=== PATIENT | female | born 1965 | race Caucasian/White ===

== ENCOUNTER 2018-06-27 10:41 | Emergency (ER) | payer OTHER ==
[2018-06-27 10:45] VITALS: RESP 18; TEMP 98.3
[2018-06-27] MEDS ORDERED: LIDOCAINE 5% PATCH TOPICAL STA (11:01)
[2018-06-27] MEDS ORDERED: METHOCARBAMOL 500 MG TAB PO STA (11:01)
--- NOTE | 2018-06-27 11:04 | ED ---
General Adult HPI - General Chief complaint: Back Pain/Injury Stated complaint: rt sided back/arm pain Time Seen by Provider: 06/27/18 10:46 Source: patient Mode of arrival: ambulatory Limitations: no limitations - History of Present Illness Initial comments: Patient is a 53-year-old female presenting for back pain. The patient states that it has been constant for the last 3 days and it is located in the right scapula shoulder blade area and she has pain radiating down the arm. She states that her tried massaging it and that improved mildly. She also tried Tylenol and Motrin with only mild relief. She denies any trauma or manipulation. She states that it is not associated with nausea/vomiting/diarrhea, cough, fevers or chills. Initially, she denied chest pain but then clarified and stated that when the symptoms started, it was initially a pain in the middle of her chest. Pt also denies any prolonged periods of immobility, CA, DVT/PE, estrogen use, or recent surgery. - Related Data Previous Rx's Medication Instructions Recorded Lidocaine 5% Patch [Lidoderm] 1 patch TOPICAL DAILY #30 patch 06/27/18 Methocarbamol [Robaxin-750] 750 mg PO TID PRN #21 tablet 06/27/18 Allergies Allergy/AdvReac Type Severity Reaction Status Date / Time Penicillins Allergy Unknown Verified 06/27/18 10:45 Review of Systems ROS Statement: Those systems with pertinent positive or pertinent negative responses have been documented in the HPI. Constitutional: Negative for chills, fatigue and fever. HENT: Negative for congestion. Respiratory: Negative for chest tightness, shortness of breath and wheezing. Negative for cough Cardiovascular: Negative for chest pain and palpitations. Gastrointestinal: Negative for abdominal pain. Negative for abdominal distention, diarrhea, nausea and vomiting. Genitourinary: Negative for dysuria. Musculoskeletal: Positive for back pain, negative for neck pain and neck stiffness. Skin: Negative for color change. Neurological: Negative for dizziness, speech difficulty, weakness and light- headedness. Psychiatric/Behavioral: Negative for agitation and confusion. Negative for anxiety ROS Other: All systems not noted in ROS Statement are negative. Past Medical History Past Medical History: Diabetes Mellitus, Hyperlipidemia, Hypertension History of Any Multi-Drug Resistant Organisms: None Reported Past Surgical History: Appendectomy, Breast Surgery Additional Past Surgical History / Comment(s): lumpectomy Past Psychological History: No Psychological Hx Reported Smoking Status: Current every day smoker Past Alcohol Use History: Occasional Past Drug Use History: None Reported General Exam - General Exam Comments Initial Comments: Constitutional: Pt appears well-developed and well-nourished. No distress. Head: Normocephalic and atraumatic. Eyes: EOM are normal. Neck: Normal range of motion. Neck supple. Cardiovascular: Normal rate, regular rhythm, S1 normal, S2 normal and normal heart sounds. Exam reveals no gallop and no friction rub. No murmur heard. Pulmonary/Chest: Effort normal and breath sounds normal. No tachypnea and no bradypnea. No respiratory distress. No wheezes or rales noted. Abdominal: Soft. Bowel sounds are normal. Pt exhibits no shifting dullness, no distension, no pulsatile liver, no fluid wave, no abdominal bruit and no ascites. There is no rigidity, no rebound, no guarding, no tenderness at McBurney's point and negative Velázquez's sign. There is no tenderness. Musculoskeletal: Normal range of motion. No tenderness to palpation of the C- spine, T-spine, L-spine Neurological: Pt is alert and oriented to person, place, and time. No cranial nerve deficit. Skin: Skin is warm and dry. No rash noted. Pt is not diaphoretic. No erythema. No pallor. Psychiatric: Pt has a normal mood and affect. Pt behavior is normal. Thought content normal. Limitations: no limitations Course Vital Signs 06/27/18 06/27/18 06/27/18 10:42 13:32 15:14 Temperature 98.3 F Pulse Rate 90 70 78 Respiratory 18 18 18 Rate Blood Pressure 158/73 134/79 117/68 O2 Sat by Pulse 99 98 96 Oximetry 06/27/18 16:04 Temperature Pulse Rate 78 Respiratory 18 Rate Blood Pressure 111/71 O2 Sat by Pulse 98 Oximetry EKG Findings - EKG Comments: EKG Findings:: EKG shows normal sinus rhythm with a rate of 77 bpm, MS interval 146, QRS 88, QTC 418. There are no significant ST depressions or elevations. Medical Decision Making - Medical Decision Making Laboratory studies included serial troponins which both were negative and a d- dimer which is as well. Chest x-ray was unremarkable as well. It was explained to patient that symptoms did not necessarily seem to be secondary to ACS and appeared to be muscular skeletal nature but this could not be excluded complete ly and that observation stay was reasonable back for rule out of cardiac etiology. However, patient kindly declined and stated that this is better after NSAIDs and prednisone.Explained all labs and diagnostic test results and that we will discharge the patient home and patient is to follow up with PCP in 1-2 days and return to the ED if symptoms worsen. Pt is agreeable to plan. . - Lab Data Result diagrams: 06/27/18 11:25 06/27/18 11:25 Lab Results 06/27/18 06/27/18 06/27/18 Range/Units 11:25 11:25 11:25 WBC 11.2 H (3.8-10.6) k/uL RBC 4.47 (3.80-5.40) m/uL Hgb 14.4 (11.4-16.0) gm/dL Hct 43.8 (34.0-46.0) % MCV 98.0 (80.0-100.0) fL MCH 32.1 (25.0-35.0) pg MCHC 32.8 (31.0-37.0) g/dL RDW 11.9 (11.5-15.5) % Plt Count 330 (150-450) k/uL Neutrophils % 62 % Lymphocytes % 31 % Monocytes % 4 % Eosinophils % 2 % Basophils % 1 % Neutrophils # 6.9 (1.3-7.7) k/uL Lymphocytes # 3.4 (1.0-4.8) k/uL Monocytes # 0.5 (0-1.0) k/uL Eosinophils # 0.2 (0-0.7) k/uL Basophils # 0.1 (0-0.2) k/uL PT 10.4 (9.0-12.0) sec INR 1.0 (<1.2) APTT 24.7 (22.0-30.0) sec D-Dimer 0.26 (<0.60) mg/L FEU Sodium 139 (137-145) mmol/L Potassium 4.2 (3.5-5.1) mmol/L Chloride 104 (98-107) mmol/L Carbon Dioxide 26 (22-30) mmol/L Anion Gap 9 mmol/L BUN 15 (7-17) mg/dL Creatinine 0.52 (0.52-1.04) mg/dL Est GFR (CKD-EPI)AfAm >90 (>60 ml/min/1.73 sqM) Est GFR (CKD-EPI)NonAf >90 (>60 ml/min/1.73 sqM) Glucose 105 H (74-99) mg/dL Calcium 10.2 (8.4-10.2) mg/dL Magnesium 1.9 (1.6-2.3) mg/dL Total Bilirubin 0.4 (0.2-1.3) mg/dL AST 26 (14-36) U/L ALT 33 (9-52) U/L Alkaline Phosphatase 93 (38-126) U/L Troponin I (0.000-0.034) ng/mL Total Protein 7.0 (6.3-8.2) g/dL Albumin 4.4 (3.5-5.0) g/dL 06/27/18 06/27/18 Range/Units 11:25 14:30 WBC (3.8-10.6) k/uL RBC (3.80-5.40) m/uL Hgb (11.4-16.0) gm/dL Hct (34.0-46.0) % MCV (80.0-100.0) fL MCH (25.0-35.0) pg MCHC (31.0-37.0) g/dL RDW (11.5-15.5) % Plt Count (150-450) k/uL Neutrophils % % Lymphocytes % % Monocytes % % Eosinophils % % Basophils % % Neutrophils # (1.3-7.7) k/uL Lymphocytes # (1.0-4.8) k/uL Monocytes # (0-1.0) k/uL Eosinophils # (0-0.7) k/uL Basophils # (0-0.2) k/uL PT (9.0-12.0) sec INR (<1.2) APTT (22.0-30.0) sec D-Dimer (<0.60) mg/L FEU Sodium (137-145) mmol/L Potassium (3.5-5.1) mmol/L Chloride (98-107) mmol/L Carbon Dioxide (22-30) mmol/L Anion Gap mmol/L BUN (7-17) mg/dL Creatinine (0.52-1.04) mg/dL Est GFR (CKD-EPI)AfAm (>60 ml/min/1.73 sqM) Est GFR (CKD-EPI)NonAf (>60 ml/min/1.73 sqM) Glucose (74-99) mg/dL Calcium (8.4-10.2) mg/dL Magnesium (1.6-2.3) mg/dL Total Bilirubin (0.2-1.3) mg/dL AST (14-36) U/L ALT (9-52) U/L Alkaline Phosphatase (38-126) U/L Troponin I <0.012 <0.012 (0.000-0.034) ng/mL Total Protein (6.3-8.2) g/dL Albumin (3.5-5.0) g/dL Disposition Clinical Impression: Back pain Disposition: HOME SELF-CARE Condition: Good Prescriptions: Lidocaine 5% Patch [Lidoderm] 1 patch TOPICAL DAILY #30 patch Methocarbamol [Robaxin-750] 750 mg PO TID PRN #21 tablet PRN Reason: Pain Is patient prescribed a controlled substance at d/c from ED?: No Referrals: Nonstaff,Physician [Primary Care Provider] - 1-2 days Genie Sifuentes MD [STAFF PHYSICIAN] - 1-2 days Time of Disposition: 15:50
[2018-06-27 11:42] LABS: Basophils # (A) 0.1 k/uL (0-0.2); Basophils % (A) 1 %; Eosinophils # (A) 0.2 k/uL (0-0.7); Eosinophils % (A) 2 %; HCT 43.8 % (34.0-46.0); HGB 14.4 gm/dL (11.4-16.0); Lymphocytes # (A) 3.4 k/uL (1.0-4.8); Lymphocytes % (A) 31 %; MCH 32.1 pg (25.0-35.0); MCHC 32.8 g/dL (31.0-37.0); Mean Platelet Volume 6.4; Monocytes # (A) 0.5 k/uL (0-1.0); Monocytes % (A) 4 %; Neutrophils # (A) 6.9 k/uL (1.3-7.7); Neutrophils % (A) 62 %; Platelet Count 330 k/uL (150-450); RBC 4.47 m/uL (3.80-5.40); RDW 11.9 % (11.5-15.5); WBC 11.2 k/uL (3.8-10.6)
--- NOTE | 2018-06-27 11:47 | XR ---
EXAMINATION TYPE: XR chest 2V DATE OF EXAM: 06/27/2018 COMPARISON: NONE HISTORY: Right-sided chest pain TECHNIQUE: Frontal and lateral views of the chest are obtained. FINDINGS: There is no focal air space opacity, pleural effusion, or pneumothorax seen. The cardiac silhouette size is within normal limits. The osseous structures are intact. IMPRESSION: No acute cardiopulmonary process.
[2018-06-27 11:54] LABS: ALT 33 U/L (9-52); AST 26 U/L (14-36); Albumin 4.4 g/dL (3.5-5.0); Alkaline Phosphatase 93 U/L (38-126); Anion Gap 9 mmol/L; Blood Urea Nitrogen 15 mg/dL (7-17); Calcium 10.2 mg/dL (8.4-10.2); Carbon Dioxide 26 mmol/L (22-30); Chloride 104 mmol/L (98-107); Glucose 105 mg/dL (74-99); Magnesium 1.9 mg/dL (1.6-2.3); Potassium 4.2 mmol/L (3.5-5.1); Sodium 139 mmol/L (137-145); Total Bilirubin 0.4 mg/dL (0.2-1.3)
[2018-06-27 12:00] LABS: D-Dimer 0.26 mg/L FEU (<0.60); Partial Thromboplastin Time 24.7 sec (22.0-30.0); Prothrombin Time 10.4 sec (9.0-12.0)
[2018-06-27] MEDS ORDERED: KETOROLAC 30 MG/ML 1 ML VIAL IVP STA (13:11)
[2018-06-27] MEDS ORDERED: methylPREDNISolone SOD SUCCI 125 MG/2 ML VIAL IV STA (13:11)
[2018-06-27 15:16] VITALS: PULSE 78
[2018-06-27 16:05] VITALS: BP 111/71
== END 2018-06-27 16:05 | disposition home or self-care (01) ==
LOC: EC 10:41
DX: M54.9 Dorsalgia, unspecified (principal); M25.511 Pain in right shoulder; M79.601 Pain in right arm; F17.200 Nicotine dependence, unspecified, uncomplicated; Z88.0 Allergy status to penicillin; Z53.20 Procedure and treatment not carried out because of patient's decision for unspecified reasons; Z86.79 Personal history of other diseases of the circulatory system
CPT/HCPCS: 36415; 93005; 85379; 80053; 83735; 84484; 85025; 85610; 85730; 71046; 99285; 96374; 96375; J2930; J1885

== ENCOUNTER 2022-03-01 07:27 | Observation (INO) | payer OTHER ==
[2022-03-01 07:42] LABS: Glucose,Whole Blood 137 mg/dL (70-110)
[2022-03-01 07:57] LABS: Basophils # (A) 0.1 k/uL (0-0.2); Basophils % (A) 0 %; Eosinophils # (A) 0.2 k/uL (0-0.7); Eosinophils % (A) 1 %; HCT 42.6 % (34.0-46.0); HGB 14.4 gm/dL (11.4-16.0); Lymphocytes # (A) 3.9 k/uL (1.0-4.8); Lymphocytes % (A) 30 %; MCH 32.6 pg (25.0-35.0); MCHC 33.7 g/dL (31.0-37.0); MCV 96.7 fL (80.0-100.0); Mean Platelet Volume 7.9; Monocytes # (A) 0.6 k/uL (0-1.0); Monocytes % (A) 5 %; Neutrophils # (A) 8.2 k/uL (1.3-7.7); Neutrophils % (A) 63 %; Platelet Count 302 k/uL (150-450); RDW 11.1 % (11.5-15.5)
[2022-03-01 08:03] LABS: ALT 22 U/L (4-34); AST 32 U/L (14-36); African American GFR (CKD) >90 (>60 ml/min/1.73 sqM); Albumin 4.7 g/dL (3.5-5.0); Alkaline Phosphatase 96 U/L (38-126); Anion Gap 6 mmol/L; Blood Urea Nitrogen 13 mg/dL (7-17); Calcium 9.6 mg/dL (8.4-10.2); Carbon Dioxide 25 mmol/L (22-30); Chloride 105 mmol/L (98-107); Glucose 132 mg/dL (74-99); Non-African American GFR(CKD) >90 (>60 ml/min/1.73 sqM); Potassium 4.3 mmol/L (3.5-5.1); Sodium 136 mmol/L (137-145); Total Bilirubin 0.6 mg/dL (0.2-1.3); Total Protein 6.9 g/dL (6.3-8.2)
[2022-03-01 08:04] LABS: Prothrombin Time 11.2 sec (9.0-12.0)
--- NOTE | 2022-03-01 08:11 | CT ---
EXAMINATION TYPE: FL barium swallow DATE OF EXAM: 02/28/2022 COMPARISON: None INDICATION: Dizziness right lower extremity numbness, vertigo DLP: 1102.6 mGycm, Automated exposure control for dose reduction was used. CONTRAST: None CT of the brain is performed utilizing 3 mm thick sections through the posterior fossa and 3 mm thick sections through the remaining calvarium. Study is performed within 24 hours of arrival to the hosp ital. No abnormal hyperdensity is present to suggest an acute intracranial hemorrhage. No mass lesion is evident. No acute infarcts are evident. Some very minimal periventricular white matter hypodensity is present likely on the basis of chronic white matter ischemic changes. This appears better visualized adjacent to the occipital horns of the lateral ventricles. Ventricles and sulci are appropriate for the patient age. Paranasal sinuses and mastoid air cells within the [id number] are clear. IMPRESSIONS: 1. No acute intracranial process. Follow-up MRI can be performed as clinically indicated. 2. There is suggestion of mild periventricular white matter hypodensity adjacent to the occipital hor ns lateral ventricles, more likely related to chronic white matter ischemic change.
[2022-03-01 08:20] LABS: Appearance,Urine Clear (Clear); Bilirubin,Urine Negative (Negative); Blood,Urine Negative (Negative); Color,Urine Colorless; Glucose,Urine (UA) Negative (Negative); Ketones,Urine Negative (Negative); Leukocyte Esterase,Urine Negative (Negative); Nitrite,Urine Negative (Negative); Protein,Urine Negative (Negative); Specific Gravity,Urine 1.006 (1.001-1.035); Urobilinogen,Urine <2.0 mg/dL (<2.0)
--- NOTE | 2022-03-01 08:26 | ED ---
General Adult HPI - General Chief complaint: Dizziness Stated complaint: Vertigo Time Seen by Provider: 03/01/22 07:43 Source: EMS Mode of arrival: EMS Limitations: no limitations - History of Present Illness Initial comments: Patient is a 56-year-old female presenting to the emergency room via EMS with an episode of severe dizziness this morning which she describes as feeling as though she is cannot pass out she denies feeling as though the room is spinning. She reports that this sensation is positional however this morning in association with her symptoms she developed some sudden right leg weakness and felt as though her leg was cannot buckle underneath her. This weakness has resolved however she continues to have decreased sensation in her right lower extremity. She reports that she has been having episodes of dizziness ongoing in termittently over the last few days all worsened by position of standing. She denies any other associated symptoms including any nausea or vomiting, chest pain, shortness of breath, abdominal pain, headache, altered mental status, ear pain, tinnitus, fevers or chills. She has a past medical history significant for diabetes, hypertension, hyperlipidemia along with intermittent peripheral neuropathy. - Related Data Home Medications Medication Instructions Recorded Confirmed Metformin Er 750mg 750 mg PO DAILY 03/01/22 03/01/22 Pravastatin Sodium [Pravachol] 40 mg PO HS 03/01/22 03/01/22 lisinopriL 40 mg PO DAILY 03/01/22 03/01/22 Allergies Allergy/AdvReac Type Severity Reaction Status Date / Time Penicillins Allergy Childhood Verified 03/01/22 09:56 Rash Review of Systems ROS Statement: Those systems with pertinent positive or pertinent negative responses have been documented in the HPI. ROS Other: All systems not noted in ROS Statement are negative. Past Medical History Past Medical History: Diabetes Mellitus, Hyperlipidemia, Hypertension History of Any Multi-Drug Resistant Organisms: None Reported Past Surgical History: Appendectomy, Breast Surgery Additional Past Surgical History / Comment(s): lumpectomy Past Psychological History: No Psychological Hx Reported Smoking Status: Current every day smoker Past Alcohol Use History: Occasional Past Drug Use History: None Reported General Exam General appearance: alert, in no apparent distress Head exam: Present: atraumatic, normocephalic, normal inspection Eye exam: Present: normal appearance, PERRL, EOMI. Absent: scleral icterus, conjunctival injection, nystagmus, periorbital swelling ENT exam: Present: normal exam, normal oropharynx, mucous membranes moist, TM's normal bilaterally Neck exam: Present: normal inspection, full ROM. Absent: lymphadenopathy Respiratory exam: Present: normal lung sounds bilaterally. Absent: respiratory distress, wheezes, rales, rhonchi, stridor Cardiovascular Exam: Present: regular rate, normal rhythm, normal heart sounds. Absent: systolic murmur, diastolic murmur, rubs, gallop, clicks GI/Abdominal exam: Present: soft, normal bowel sounds. Absent: distended, tenderness, guarding, rebound, rigid Extremities exam: Present: normal inspection. Absent: pedal edema, joint swelling Expanded Patient oriented to: Present: person, place, time Speech: Present: fluid speech Cranial nerves: EOM's Intact: Normal, Gag Reflex: Normal, Tongue Deviation: Normal, Facial Sensation: Normal Sensory exam: Upper Extremity Light Touch: Normal, Lower Extremity Light Touch: Abnormal Right Motor strength exam: RUE: 5, LUE: 5, RLE: 5, LLE: 5 Eye Response: (4) open spontaneously Motor Response: (6) obeys commands Verbal Response: (5) oriented [place] Total: 15 Psychiatric exam: Present: normal affect, normal mood Skin exam: Present: warm, dry, intact, normal color. Absent: rash Course Vital Signs 03/01/22 03/01/22 03/01/22 07:31 11:00 12:04 Temperature 97.9 F Pulse Rate 85 71 85 Respiratory 18 16 16 Rate Blood Pressure 139/67 106/52 112/67 O2 Sat by Pulse 97 96 98 Oximetry Medical Decision Making - Medical Decision Making 56 yo male presenting to the emergency room with severe dizziness that she describes as feeling as though she was going to pass out with sudden right lower extremity weakness and decreased sensation. No lower extremity weakness at this time but continues to have right lower extremity decreased sensation. No other focal neurological deficits besides decreased right lower extremity sensation.Onset of symptoms was at 0500. NIH scale 1. Code stroke activated. Due to NIH scale of 1 risk from alteplase outweigh the benefits and Alteplase will not be administered. Computed tomography scan of brain without contrast image reviewed by me showing no hemorrhage or mass effect. CTA of head and neck image reviewed by me demonstrating no significant stenosis to bilateral carotid arteries. Dr. Guzman involved with case and spoke with neuro interventional is data security consultant Dr. Gonzalez who agrees with above statement of no indication for alteplase and denies further testing needs at this time. Laboratory show arteries reveals slightly elevated WBC at 13.0 with neutrophils at 8.2 otherwise CBC stable. Glucose at acceptable level 132, CMP otherwise unremarkable. Urinalysis negative. Troponin negative. Mild right lower extremity paresthesia continues, no further episodes of weakness. No dizziness while lying. No indication for further diagnostic testing or imaging at this time however in the setting of symptoms along with co-morbidities observation stay recommended. Dr. Sadie peacock physician advised of patient's case by Dr. Guzman. Will place admission orders. Case discussed with Dr. Guzman. - Lab Data Result diagrams: 03/01/22 07:30 03/01/22 07:30 Lab Results 03/01/22 03/01/22 03/01/22 Range/Units 07:30 07:30 07:30 WBC 13.0 H (3.8-10.6) k/uL RBC 4.40 (3.80-5.40) m/uL Hgb 14.4 (11.4-16.0) gm/dL Hct 42.6 (34.0-46.0) % MCV 96.7 (80.0-100.0) fL MCH 32.6 (25.0-35.0) pg MCHC 33.7 (31.0-37.0) g/dL RDW 11.1 L (11.5-15.5) % Plt Count 302 (150-450) k/uL MPV 7.9 Neutrophils % 63 % Lymphocytes % 30 % Monocytes % 5 % Eosinophils % 1 % Basophils % 0 % Neutrophils # 8.2 H (1.3-7.7) k/uL Lymphocytes # 3.9 (1.0-4.8) k/uL Monocytes # 0.6 (0-1.0) k/uL Eosinophils # 0.2 (0-0.7) k/uL Basophils # 0.1 (0-0.2) k/uL PT 11.2 (9.0-12.0) sec INR 1.0 (<1.2) Sodium 136 L (137-145) mmol/L Potassium 4.3 (3.5-5.1) mmol/L Chloride 105 (98-107) mmol/L Carbon Dioxide 25 (22-30) mmol/L Anion Gap 6 mmol/L BUN 13 (7-17) mg/dL Creatinine 0.50 L (0.52-1.04) mg/dL Est GFR (CKD-EPI)AfAm >90 (>60 ml/min/1.73 sqM) Est GFR (CKD-EPI)NonAf >90 (>60 ml/min/1.73 sqM) Glucose 132 H (74-99) mg/dL POC Glucose (mg/dL) (70-110) mg/dL POC Glu Dry Boss ID Calcium 9.6 (8.4-10.2) mg/dL Total Bilirubin 0.6 (0.2-1.3) mg/dL AST 32 (14-36) U/L ALT 22 (4-34) U/L Alkaline Phosphatase 96 (38-126) U/L Troponin I (0.000-0.034) ng/mL Total Protein 6.9 (6.3-8.2) g/dL Albumin 4.7 (3.5-5.0) g/dL Urine Color Urine Appearance (Clear) Urine pH (5.0-8.0) Ur Specific [place] (1.001-1.035) Urine Protein (Negative) Urine Glucose (UA) (Negative) Urine Ketones (Negative) Urine Blood (Negative) Urine Nitrite (Negative) Urine Bilirubin (Negative) Urine Urobilinogen (<2.0) mg/dL Ur Leukocyte Esterase (Negative) 03/01/22 03/01/22 03/01/22 Range/Units 07:30 07:40 08:17 WBC (3.8-10.6) k/uL RBC (3.80-5.40) m/uL Hgb (11.4-16.0) gm/dL Hct (34.0-46.0) % MCV (80.0-100.0) fL MCH (25.0-35.0) pg MCHC (31.0-37.0) g/dL RDW (11.5-15.5) % Plt Count (150-450) k/uL MPV Neutrophils % % Lymphocytes % % Monocytes % % Eosinophils % % Basophils % % Neutrophils # (1.3-7.7) k/uL Lymphocytes # (1.0-4.8) k/uL Monocytes # (0-1.0) k/uL Eosinophils # (0-0.7) k/uL Basophils # (0-0.2) k/uL PT (9.0-12.0) sec INR (<1.2) Sodium (137-145) mmol/L Potassium (3.5-5.1) mmol/L Chloride (98-107) mmol/L Carbon Dioxide (22-30) mmol/L Anion Gap mmol/L BUN (7-17) mg/dL Creatinine (0.52-1.04) mg/dL Est GFR (CKD-EPI)AfAm (>60 ml/min/1.73 sqM) Est GFR (CKD-EPI)NonAf (>60 ml/min/1.73 sqM) Glucose (74-99) mg/dL POC Glucose (mg/dL) 137 H (70-110) mg/dL POC Glu Dry Boss ID Vern Flores Calcium (8.4-10.2) mg/dL Total Bilirubin (0.2-1.3) mg/dL AST (14-36) U/L ALT (4-34) U/L Alkaline Phosphatase (38-126) U/L Troponin I <0.012 (0.000-0.034) ng/mL Total Protein (6.3-8.2) g/dL Albumin (3.5-5.0) g/dL Urine Color Colorless Urine Appearance Clear (Clear) Urine pH 6.0 (5.0-8.0) Ur Specific [place] 1.006 (1.001-1.035) Urine Protein Negative (Negative) Urine Glucose (UA) Negative (Negative) Urine Ketones Negative (Negative) Urine Blood Negative (Negative) Urine Nitrite Negative (Negative) Urine Bilirubin Negative (Negative) Urine Urobilinogen <2.0 (<2.0) mg/dL Ur Leukocyte Esterase Negative (Negative) - EKG Data EKG Comments: EKG completed at 07 33 interpreted by me findings of sinus rhythm, ventricular rate 78 bpm, DE interval 145 ms, QRS duration 88 ms, QT/QTC 378/411 ms, PRT axes 77, 70, 59 - Radiology Data Radiology results: report reviewed, image reviewed CT of brain without contrast impression the radiologist no acute intracranial process. There is suggestion of mild periventricular white matter hypodensity adjacent to the occipital horns lateral ventricles, more likely related to chronic white matter ischemic changes. Follow-up MRI can be performed as clinically indicated. CTA head and neck impression my right radiologist no flow-limiting stenosis bilateral carotid bifurcations. Normal upper [place] of [place]. Emphysematous changes to the upper lung sarkar. Disposition Clinical Impression: Positional lightheadedness, Decreased sensation of lower extremity Disposition: ADMITTED IP TO THIS [facility] Condition: Stable Is patient prescribed a controlled substance at d/c from ED?: No Time of Disposition: 10:30
--- NOTE | 2022-03-01 08:56 | CT ---
EXAMINATION TYPE: CODE STROKE: CTA head neck DATE OF EXAM: 03/01/2022 HISTORY: Rt leg paresthesia, Vertigo COMPARISON: None CT DLP: 3743.3 mGycm. Automated Exposure Control for Dose Reduction was Utilized. TECHNIQUE: CTA scan of the neck is performed with IV Contrast, patient injected with 65 mL of Isovue 370, axial images are obtained, coronal and sagittal reformatted images are reviewed. Three-D recons tructed images are created on an independent workstation and reviewed. Source images are reviewed. FINDINGS: Carotid/Vascular Structures: There is a three-vessel arch. Vertebral arteries are codominant. Minimal plaquing is present at the right carotid bifurcation. No significant flow-limiting stenosis is evide nt. Very minimal plaquing without stenosis present at the left carotid bifurcation. Vertebral arterie s and internal carotid arteries are patent to the skull base. Cervical of [place]: Vertebral basilar system appears normal. Posterior cerebral vasculature is unrema rkable. Internal carotid arteries bifurcate normally into A1 and M1 segments. A2 segments are normal. The anterior communicating artery is patent. Left Posterior communicating artery is patent. Right po sterior communicating artery is patent. Other: Emphysematous changes are present in the lung apices. IMPRESSION: 1. No flow-limiting stenosis bilateral carotid bifurcations. 2. Normal [place] of [place]. 3. Emphysematous changes upper lung sarkar. NASCET criteria was used in interpretation of this exam?
[2022-03-01] MEDS ORDERED: DICYCLOMINE 10 MG/ML 2 ML AMP IM STA (09:17)
[2022-03-01] MEDS ORDERED: NALOXONE 0.4 MG/ML 1 ML VIAL IV PRN (10:27)
[2022-03-01] MEDS ORDERED: ASPIRIN 81 MG PO STA (16:03)
[2022-03-01] MEDS ORDERED: DEXTROSE 50% SYRINGE 50 ML IVP PRN ×2 (16:07)
[2022-03-01 16:08] VITALS: RESP 16
--- NOTE | 2022-03-01 16:33 | P.HPIM ---
History of Present Illness H&P Date: 03/01/22 Patient is a 56-year-old female with PMH of hypertension, diabetes mellitus, dyslipidemia, smoker who presents the ED for dizziness and weakness. Patient reports intermittent vertigo has been ongoing for the past 2 months. Initially, she noticed vertigo only when standing up from her chair at work but now she notices these symtoms with ambulation. Vertigo is worsened when showering. Today, she noted weakness and numbness in her right lower extremity below the knee that almost caused her to fall. She also noted her vertigo was more intense today which prompted her to come to the ED. She denies any history of [place] or CVA. In the past, she was reported numbness in both of her hands, evaluated by a neurologist in the outpatient setting, and was told that it was a pinched nerve. She denies any hearing loss. Her vertigo is not aggravated with head movement. She denies any recent viral URI. She denies any head trauma or loss of consciousness. She denies any slurred speech or confusion. Of note, patient reports blurry vision has been ongoing for many months, worsened in the dark. She does wear contacts. 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 She denies any headache, lower extremity edema, nausea or vomiting, fever or chills, cough, chest pain, shortness of breath, palpitations, changes in urination or bowel habits. No changes in appetite or weight. Currently, she reports that her right lower extremity numbness is improving. However, her vertigo-like symptoms his persistent. In the ED, her vital signs are stable. CBC showed leukocytosis of 13. Coagulation panel negative. CMP showed sodium 136, creatinine of 0.5 and glucose 132. Troponin was less than 0.012, EKG showing normal sinus rhythm. Urinalysis was negative. CT brain showed mild periventricular white body hypodensity adjacent to the occipital horns lateral ventricles most likely related to chronic white matter ischemic changes. CTA head and neck was negative. Patient is admitted for further workup of symptoms. Pertinent positives and negatives as discussed in HPI, a complete review of systems was performed and all other systems are negative. General: non toxic, no distress, appears at stated age Derm: warm, dry Head: atraumatic, normocephalic, symmetric Eyes: EOMI, no lid lag, anicteric sclera Mouth: no lip lesion, mucus membranes moist Cardiovascular: S1S2 reg, no murmur, positive posterior tibial pulse bilateral Lungs: CTA bilateral, no rhonchi, no rales , no accessory muscle use Abdominal: soft, nontender to palpation, no guarding, no appreciable organo megaly Ext: no gross muscle atrophy, no edema, no contractures Neuro: CN II-XI grossly intact, no focal neuro deficits except decreased sensation to touch in the right lower extremity Psych: Alert, oriented, appropriate affect #Vertigo with right lower extremity numbness and weakness #Leukocytosis #Hypertension #Diabetes mellitus #Dyslipidemia #Smoker Patient with vertiginous symptoms associated with right lower extremity numbness weakness. Less likely BPV, vestibular neuritis, labyrinthitis, acoustic neuroma, Mnire's disease. She does not have any hearing loss. She does have some risk f actors for stroke. CT brain showed mild periventricular white body hypodensity adjacent to the occipital horns lateral ventricles most likely related to chronic white matter ischemic changes. CTA head and neck was negative. She will be started on Aspirin and Lipitor. Echocardiogram and MRI brain will be ordered. PT and OT will be consulted. A1c and Lipid panel will be ordered. Patient will be placed on telemetry monitoring. Neurochecks will be ordered. Restart Lisinopril. Monitor vitals, adjust medications if necessary. Start insulin sliding scale. Accuchecks ACHS. Hypoglycemic precautions. Patient is requesting a Nicotine patch. Patient names her decision maker if she can't make decisions for herself. She would like to be FULL CODE. DVT prophylaxis: Heparin Discussed with: Patient, ED physician Anticipated discharge: 1-[address]: Home A total of 35 minutes was spent on the care of this complex patient more than 50% of the time was spent in counseling and care coordination. Past Medical History Past Medical History: Diabetes Mellitus, Hyperlipidemia, Hypertension History of Any Multi-Drug Resistant Organisms: None Reported Past Surgical History: Appendectomy, Breast Surgery Additional Past Surgical History / Comment(s): lumpectomy Past Psychological History: No Psychological Hx Reported Smoking Status: Current every day smoker Past Alcohol Use History: Occasional Past Drug Use History: None Reported Medications and Allergies Home Medications Medication Instructions Recorded Confirmed Type Metformin Er 750mg 750 mg PO DAILY 03/01/22 03/01/22 History Pravastatin Sodium [Pravachol] 40 mg PO HS 03/01/22 03/01/22 History lisinopriL 40 mg PO DAILY 03/01/22 03/01/22 History Allergies Allergy/AdvReac Type Severity Reaction Status Date / Time Penicillins Allergy Childhood Verified 03/01/22 15:18 Rash Physical Exam Vitals: Vital Signs Temp Pulse Pulse Resp BP BP Pulse Ox 03/01/22 16:11 98 03/01/22 15:30 98 F 70 16 133/63 98 03/01/22 14:46 98.9 F 74 18 106/53 98 03/01/22 12:04 85 16 112/67 98 03/01/22 11:00 71 16 106/52 96 03/01/22 07:31 97.9 F 85 18 139/67 97 Intake and Output 03/01/22 03/01/22 03/01/22 06:59 14:59 22:59 Other: Voiding Method Toilet # Voids 1 Weight 55.338 kg 55.338 kg Results CBC & Chem 7: 03/01/22 07:30 03/01/22 07:30 Labs: Abnormal Lab Results - Last 24 Hours (Table) 03/01/22 03/01/22 03/01/22 Range/Units 07:30 07:30 07:40 WBC 13.0 H (3.8-10.6) k/uL RDW 11.1 L (11.5-15.5) % Neutrophils # 8.2 H (1.3-7.7) k/uL Sodium 136 L (137-145) mmol/L Creatinine 0.50 L (0.52-1.04) mg/dL Glucose 132 H (74-99) mg/dL POC Glucose (mg/dL) 137 H (70-110) mg/dL Thrombosis Risk Factor Assmnt - Choose All That Apply Each Factor Represents 1 point: Age 41-60 years Thrombosis Risk Factor Assessment Total Risk Factor Score: 1 Thrombosis Risk Factor Assessment Level: Low Risk
[2022-03-01] MEDS: NICOTINE 21MG/24HR PATCH TRANSDERM SCH (17:18)
[2022-03-01] MEDS: ATORVASTATIN 40 MG TAB PO SCH (17:18)
[2022-03-01 17:27] LABS: Glucose,Whole Blood 146 mg/dL (70-110)
[2022-03-01] MEDS: INSULIN ASPART (NovoLOG) 100 UNIT/ML VIAL SQ SCH ×2 (17:29→20:33)
[2022-03-01 20:09] LABS: Glucose,Whole Blood 161 mg/dL (70-110)
[2022-03-02] MEDS: HEPARIN SODIUM,PORCINE/PF 5,000 UNIT/0.5 ML SYRINGE SQ SCH ×2 (00:30→10:02)
[2022-03-02] MEDS: INSULIN ASPART (NovoLOG) 100 UNIT/ML VIAL SQ SCH ×2 (05:47→13:12)
[2022-03-02 05:51] LABS: Glucose,Whole Blood 126 mg/dL (70-110)
[2022-03-02] MEDS ORDERED: MECLIZINE 25 MG TAB PO PRN (07:36)
[2022-03-02] MEDS ORDERED: ASPIRIN 81 MG PO SCH (09:00)
[2022-03-02] MEDS ORDERED: lisinopriL 20 MG TAB PO SCH (09:00)
[2022-03-02 09:21] LABS: LDL Cholesterol,Calculated 104.1 mg/dL (0.0-131.0)
[2022-03-02] MEDS: ATORVASTATIN 40 MG TAB PO SCH (10:02)
[2022-03-02] MEDS: NICOTINE 21MG/24HR PATCH TRANSDERM SCH (10:02)
--- NOTE | 2022-03-02 11:47 | P.DS ---
Providers Date of admission: 03/01/22 10:16 Expected date of discharge: 03/02/22 Attending physician: Destiney Davies MD Consults: 03/01/22 18:35 Consult Physician Routine Consulting Provider: Mami Alvarez Consult Reason/Comments: Vertigo, R sided weakness/numbness Do you want consulting provider notified?: Yes Primary care physician: Physician Nonsta Hospital Course: Patient is a 56-year-old female with PMH of hypertension, diabetes mellitus, dyslipidemia, smoker who presents the ED for dizziness and weakness. Patient reports intermittent vertigo has been ongoing for the past 2 months. Initially, she noticed vertigo only when standing up from her chair at work but now she notices these symtoms with ambulation. Vertigo is worsened when showering. Today, she noted weakness and numbness in her right lower extremity below the knee that almost caused her to fall. She also noted her vertigo was more intense today which prompted her to come to the ED. She denies any history of [place] or CVA. In the past, she was reported numbness in both of her hands, evaluated by a neurologist in the outpatient setting, and was told that it was a pinched nerve. She denies any hearing loss. Her vertigo is not aggravated with head movement. She denies any recent viral URI. She denies any head trauma or loss of consciousness. She denies any slurred speech or confusion. Of note, patient reports blurry vision has been ongoing for many months, worsened in the dark. She does wear contacts. 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 She denies any headache, lower extremity edema, nausea or vomiting, fever or chills, cough, chest pain, shortness of breath, palpitations, changes in urination or bowel habits. No changes in appetite or weight. Currently, she reports that her right lower extremity numbness is improving. However, her vertigo-like symptoms his persistent. In the ED, her vital signs are stable. CBC showed leukocytosis of 13. Coagulation panel negative. CMP showed sodium 136, creatinine of 0.5 and glucose 132. Troponin was less than 0.012, EKG showing normal sinus rhythm. Urinalysis was negative. CT brain showed mild periventricular white body hypodensity adjacent to the occipital horns lateral ventricles most likely related to chronic white matter ischemic changes. CTA head and neck was negative. Patient is admitted for further workup of symptoms. Patient was started on aspirin and Lipitor. Echocardiogram and MRI brain was ordered and pending at the time of this time. Hemoglobin A1c was 6.8. Lipid panel is within normal limits. Neurology was consulted and consult was pending at the time of this note. Patient was seen and examined this morning. She reports complete resolution of her right lower extremity numbness but continues to report vertigo-like symptoms when ambulating. Patient reports worsening vision over the past 2 weeks. Her vision is worst when driving at nighttime. She does wear contacts and glasses and continues to reports blurry vision regardless. We performed a 5 minute cover test which improved her vertigo 85-95%. Plan is to discharge the patient home if MRI brain is normal. She will be discharged on ASA and Lipitor. She has an appointment with ophthalmology on Friday. Pertinent studies include brain CT, CTA head and neck, brain MRI. General: non toxic, no distress, appears at stated age Derm: warm, dry Head: atraumatic, normocephalic, symmetric Eyes: EOMI, no lid lag, anicteric sclera Mouth: no lip lesion, mucus membranes moist Cardiovascular: S1S2 reg, no murmur Lungs: CTA bilateral, no rhonchi, no rales , no accessory muscle use Ext: no gross muscle atrophy, no edema, no contractures Neuro: no focal neuro deficits Psych: Alert, oriented, appropriate affect Discharge Diagnosis: #Vertigo with right lower extremity numbness and weakness #Leukocytosis #Hypertension #Diabetes mellitus #Dyslipidemia #Smoker Patient Condition at Discharge: Stable Plan - Discharge Summary New Discharge Prescriptions: No Action Metformin Er 750mg 750 mg PO DAILY lisinopriL 40 mg PO DAILY Pravastatin Sodium [Pravachol] 40 mg PO HS Discharge Medication List Metformin Er 750mg 750 mg PO DAILY 03/01/22 [History] Pravastatin Sodium [Pravachol] 40 mg PO HS 03/01/22 [History] lisinopriL 40 mg PO DAILY 03/01/22 [History] Follow up Appointment(s)/Referral(s): Nonstaff,Physician [Primary Care Provider] - 1-2 days
--- NOTE | 2022-03-02 11:54 | MR ---
EXAMINATION TYPE: MR brain wo con DATE OF EXAM: 03/02/2022 11:46 AM COMPARISON: NONE HISTORY: Rt leg numbness, vertigo. Multiplanar and multispin-echo imaging of the brain was performed . The ventricles, basal cisterns and sulci overlying the cerebral convexities are within normal limits. There is no evidence for midline shift or mass effect. Acute intracranial hemorrhage or extra-axial collection is not evident. There are multiple foci of increased signal within the deep and periventricular white matter of both cerebral hemispheres some of which demonstrate a Meyer finger morphology. Largest lesion right cereb ral hemisphere measures 1.1 cm and on the left globular area measuring 1.2 cm adjacent to the posteri or aspect of the lateral ventricle. No acute edema is identified. The paranasal sinuses and mastoid air cells are well-aerated. IMPRESSION: 1. No evidence for acute CVA. 2. Correlate for multiple sclerosis. Additional possibilities include that of Lyme's disease, chronic small vessel ischemic change, chronic migraine headaches vasculopathy to name a few.
[2022-03-02 12:49] LABS: Glucose,Whole Blood 186 mg/dL (70-110)
[2022-03-02 13:00] VITALS: BP 118/67; PULSE 76; TEMP 98.2
--- NOTE | 2022-03-02 13:30 | P.CNNES ---
History of Present Illness Consult date: 03/02/22 Reason for Consult: vertigo, right-sided weakness, numbness History of Present Illness: The patient is a 56-year-old female who is seen in neurologic consultation on March 02, 2022, via teleneurology. The patient is seen at 11: 41 a.m. History is obtained from the patient and her , who was present at the bedside at the time of the evaluation. Additional information is obtained in review of the chart. The patient reports that she got up yesterday morning and began to [employer] for work. Reports feeling off balance. She says she has been feeling off balance for a little while now. She says it has been intermittent for a few weeks. Yesterday, the off-balance sensation was not intermittent. It continued. The patient reports that while she was in the shower, she continued to feel off balance and also began to notice weakness and numbness in her lower right leg. She felt as if her right leg would give out. According to the patient's , who is present at the bedside, the patient began to panic with the onset of these symptoms. He did not notice any drooping of the patient's face. There was no dysarthria or dysphasia. The patient denies headache, vertigo, diplopia, difficulty with coordination of her upper ex tremities and difficulty swallowing. The patient does report that recently, she has been having difficulty with her vision. She states that she is unable to drive at night because of the glare. Her left eye is worse than her right. She does feel that at baseline, the vision from her left eye is blurred. She has not noticed any recent worsening, since the onset of these symptoms yesterday. The patient does note a feeling of being off balance, when getting up from a seated position. She does not feel off balance when she is seated. The patient denies vertigo. She does report occasionally feeling lightheaded. There have been no episodes of syncope. The patient does report intermittent tingling in her hands and feet. She has seen a neurologist in the past, because of paresthesias involving her left arm. This reportedly occurred approximately one year ago. She was diagnosed with a "pinched nerve". Workup in the emergency department included a CT scan of the brain and CT angiogram of the head and neck. There was no reported hemorrhage or acute infarct. Angiogram revealed no signs of significant stenosis or large vessel occlusion. Review of Systems Eyes: left bulging eye Past Medical History Past Medical History: Diabetes Mellitus, Hyperlipidemia, Hypertension History of Any Multi-Drug Resistant Organisms: None Reported Past Surgical History: Appendectomy, Breast Surgery Additional Past Surgical History / Comment(s): lumpectomy Past Psychological History: No Psychological Hx Reported Smoking Status: Current every day smoker Past Alcohol Use History: Occasional Past Drug Use History: None Reported Medications and Allergies Home Medications Medication Instructions Recorded Confirmed Type Metformin Er 750mg 750 mg PO DAILY 03/01/22 03/01/22 History lisinopriL 40 mg PO DAILY 03/01/22 03/01/22 History Aspirin 81 mg PO DAILY #30 tab 03/02/22 Rx Atorvastatin [Lipitor] 40 mg PO DAILY #30 tab 03/02/22 Rx Allergies Allergy/AdvReac Type Severity Reaction Status Date / Time Penicillins Allergy Childhood Verified 03/01/22 15:18 Rash Physical Examination - Vital Signs Vital Signs: Vital Signs Temp Pulse Pulse Resp BP BP Pulse Ox 03/02/22 02:59 98.0 F 75 16 123/78 96 03/02/22 01:56 68 16 03/01/22 21:08 68 16 03/01/22 19:55 98.0 F 68 16 126/72 96 03/01/22 16:11 98 03/01/22 15:30 98 F 70 16 133/63 98 03/01/22 14:46 98.9 F 74 18 106/53 98 03/01/22 12:04 85 16 112/67 98 03/01/22 11:00 71 16 106/52 96 Intake and Output 03/01/22 03/02/22 03/02/22 22:59 06:59 14:59 Intake Total 118 Balance 118 Intake: Oral 118 Other: Voiding Method Toilet Toilet # Voids 1 2 Weight 55.338 kg Gen.: The patient is reclining in the bed. She is well-nourished, well- developed and in no acute distress. HEENT: Head is atraumatic, normocephalic. Fundus not visualized. There is no scleral icterus. Mucous membranes are moist. Neck: Supple, without carotid bruits Heart: Regular rate and rhythm Lungs: No respiratory distress Extremities: Without edema Neurological examination Mental status: The patient is awake, alert and oriented 3. Her speech is clear. There is no dysarthria or aphasia. Judgment and insight are intact. Cranial nerves: Pupils are equal at 4 mm and reactive. Visual sarkar are full to confrontation. Extraocular movements are intact. There is no nystagmus. Facial sensation is intact. There is no facial asymmetry. Hearing is grossly intact. Uvula and palate are midline. Shoulder shrug is symmetric. Tongue protrudes midline. Motor: Strength is 4-5/5 throughout. Sensation: Grossly intact to light touch throughout Coordination: Finger to nose, heel to cota and rapid alternating movements are intact. Deep tendon reflexes: 2+/4+ throughout Gait: Not assessed Results - Laboratory Findings CBC and BMP: 03/01/22 07:30 03/01/22 07:30 Abnormal Lab Findings: Abnormal Labs 03/01/22 03/01/22 03/01/22 07:30 07:30 07:40 WBC 13.0 H RDW 11.1 L Neutrophils # 8.2 H Sodium 136 L Creatinine 0.50 L Glucose 132 H POC Glucose (mg/dL) 137 H 03/01/22 03/01/22 03/02/22 17:26 20:05 05:47 WBC RDW Neutrophils # Sodium Creatinine Glucose POC Glucose (mg/dL) 146 H 161 H 126 H - Diagnostic Findings Comments: MRI of the brain is negative for acute infarct, per report. Because of inconsistencies in the system, I am unable to actually visualize the MRI images myself at this time. Assessment and Plan Assessment: 1. The patient has a normal neurological examination. There are no focal or lateralizing findings suggestive of posterior circulation stroke-possible TIA The patient does have risk factors for stroke including, diabetes mellitus, hypertension, hypercholesterolemia and smoking 2. MRI of brain report suggests possible demyelinating lesions, I am unable to visualize these images Plan: 1. The patient was strongly advised to stop smoking so as to reduce her risk of stroke 2. The patient was applauded for her mildly elevated hemoglobin A1c, in the set ting of diabetes mellitus 3. The patient should continue statin 40 mg, aspirin 81 mg, heart healthy diet, exercise Thank you for allowing us to participate in the care of this patient Time with Patient: Greater than 30 (Spent 30 minutes examining the patient, obtaining a history and discussing diagnosis and plan. Another 20 minutes were spent reviewing labs, documentation and preparing this note.)
--- NOTE | 2022-03-02 14:27 | CA ---
Transthoracic Echo Report Name: Chantel Barbosa Age: 56 Gender: F : 1965 Exam Date: 03/02/2022 09:33 Exam Location: [place] [facility] Ht (in): 63 Wt (lb): 115 Ordering Physician: Destiney Davies MD Attending/Referring Phys: Mop Maker Maria T Ramirez RDCS Procedure CPT: Indications: Thrombus Cardiac Hx: Technical Quality: Good Contrast 1: N/A Total Dose (mL): Contrast 2: Total Dose (mL): MEASUREMENTS (Male / Female) Normal Values 2D ECHO LV Diastolic Diameter PLAX 3.4 cm 4.2 - 5.9 / 3.9 - 5.3 cm LV Systolic Diameter PLAX 2.4 cm IVS Diastolic Thickness 0.9 cm 0.6 - 1.0 / 0.6 - 0.9 cm LVPW Diastolic Thickness 0.8 cm 0.6 - 1.0 / 0.6 - 0.9 cm LV Relative Wall Thickness 0.5 RV Internal Dim ED PLAX 2.4 cm LA Systolic Diameter LX 2.7 cm 3.0 - 4.0 / 2.7 - 3.8 cm LA Volume 29.8 cm??? 18 - 58 / 22 - 52 cm??? M-MODE Aortic Root Diameter MM 2.5 cm LA Systolic Diameter MM 3.0 cm LA Ao Ratio MM 1.2 MV E Point Septal Separation 0.3 cm AV Cusp Separation MM 1.2 cm DOPPLER MV Area PHT 7.0 cm??? Mitral E Point Velocity 58.3 cm/s Mitral A Point Velocity 52.9 cm/s Mitral E to A Ratio 1.1 MV Deceleration Time 108.9 ms MV E' Velocity 8.9 cm/s Mitral E to MV E' Ratio 6.5 TR Peak Velocity 217.3 cm/s TR Peak Gradient 18.9 mmHg Right Ventricular Systolic Press 23.9 mmHg FINDINGS Left Ventricle Normal Left ventricular size, wall thickness, systolic function with no obvious regional wall motion abnormalities. Left ventricular ejection fraction is estimated at 55 %. Right Ventricle Normal right ventricular size and function. Right ventricular systolic pressure within normal limits. Right Atrium Normal right atrial size. Left Atrium Normal left atrial size. Mitral Valve Structurally normal mitral valve. Mild mitral regurgitation. Aortic Valve Trileaflet aortic valve. Aortic valve sclerosis. Tricuspid Valve Structurally normal tricuspid valve. Mild tricuspid regurgitation. Pulmonic Valve Structurally normal pulmonic valve. Pericardium Normal pericardium. Aorta Normal size aortic root and proximal ascending aorta. CONCLUSIONS Left ventricular ejection fraction 55% Mild mitral regurgitation Mild tricuspid regurgitation No pericardial effusion Previewed by: Dr. Ruben Burnett DO (Electronically Signed) Final Date: 02 March 2022 14:26
== END 2022-03-02 14:20 | disposition home or self-care (01) ==
LOC: EC 07:27 → 6NMEDSUR 10:16
PROVIDERS: ADMIT Family Medicine; ATTEND Family Medicine
DX: R42 Dizziness and giddiness (principal); R20.0 Anesthesia of skin; R53.1 Weakness; D72.829 Elevated white blood cell count, unspecified; E11.42 Type 2 diabetes mellitus with diabetic polyneuropathy; I10 Essential (primary) hypertension; E78.5 Hyperlipidemia, unspecified; F17.200 Nicotine dependence, unspecified, uncomplicated; Z79.82 Long term (current) use of aspirin; Z79.84 Long term (current) use of oral hypoglycemic drugs; Z79.899 Other long term (current) drug therapy; Z88.0 Allergy status to penicillin
CPT/HCPCS: 96372; 99285; 36415; 94760; 93005; 93306; 80061; 80053; 84484; 85025; 85610; 81003; 83036; 70496; 70450; 70498; 70551; G0378 ×2; S4990 ×2; Q9967; J1644

== ENCOUNTER → 2023-09-03 | Outpatient (CLI) | payer OTHER ==
--- NOTE | 2023-09-03 18:39 | MM ---
Reason for Exam: Screening (asymptomatic). Last mammogram was performed 1 year(s) and 6 month(s) ago. Patient History: Menarche at age 14. First Full-Term at age 34. Late child-bearing (after 30). Postmenopausal. Paternal aunt (great) had breast cancer. Risk Values: Jada 5 year model risk: 1.7%. NCI Lifetime model risk: 10.9%. Prior Study Comparison: 06/23/2017 Bilateral Screening Mammogram, [facility]. 02/25/2022 Bilateral Screening Mammogram, [facility]. Tissue Density: The breasts are heterogeneously dense, which may obscure small masses. Findings: Analyzed By CAD. There is no suspicious group of microcalcifications or new suspicious mass in either breast. Overall Assessment: Negative, BI-RAD 1 Management: Screening Mammogram of both breasts in 1 year. . Patient should continue monthly self-breast exams. A clinical breast exam by your physician is recommended on an annual basis. This exam should not preclude additional follow-up of suspicious palpable abnormalities. Note on Jada scores and lifetime risk: 1. A Jada score greater than 3% is considered moderate risk. If this is the case, consider specialist referral to assess eligibility for a risk reducing agent. 2. If overall lifetime risk for the development of breast cancer is 20% or higher, the patient may qualify for future screening with alternating mammogram and breast MRI. Electronically signed and approved by: Tank Groves M.D. Radiologist
== END | disposition home or self-care (01) ==
LOC: RADMAMWWP 07:41
PROVIDERS: ATTEND Family Medicine
DX: Z12.31 Encounter for screening mammogram for malignant neoplasm of breast (principal); Z78.0 Asymptomatic menopausal state; Z80.3 Family history of malignant neoplasm of breast
CPT/HCPCS: 77067

== ENCOUNTER 2023-10-10 08:24 | Day surgery (SDC) | payer OTHER ==
[2023-10-07 14:56] VITALS: BMI 21.7
[2023-10-10 09:14] VITALS: TEMP 98.2
[2023-10-10] MEDS: IV FLUID CONTINUATION 1,000 ML IV ONE (09:22)
[2023-10-10] MEDS: LACTATED RINGERS 1,000 ML IV SCH (09:22)
[2023-10-10 09:28] LABS: Glucose,Whole Blood 119 mg/dL (70-110)
[2023-10-10] MEDS ORDERED: PROPOFOL 10 MG/ML 20 ML VIAL IV ONE (09:39)
--- NOTE | 2023-10-10 09:59 | P.PCN ---
Date of Procedure: 10/10/23 Procedure(s) Performed: BRIEF HISTORY: Patient is a 58-year-old pleasant white female scheduled for an elective colonoscopy as a part of evaluation by history of colon polyps. Her last colonoscopy was 5 years ago. PROCEDURE PERFORMED: Colonoscopy. PREOPERATIVE DIAGNOSIS: History of colon polyps. IV sedation per Anesthesia. PROCEDURE: After informed consent was obtained, the patient, was brought into the endoscopy unit. IV sedation was administered by Anesthesia under continuous monitoring. Digital rectal examination was normal. Initially the Olympus CF-160 flexible video colonoscope was then inserted in the rectum, gradually advanced into the cecum without any difficulty. Careful examination was performed as the scope was gradually being withdrawn. Ileocecal valve and the appendiceal orifice were visualized and appeared normal. Prep was excellent. Mucosa of the cecum, ascending colon appeared normal. The hepatic Exa there was a 3 mm polyp that was removed by cold biopsy. Rest of the, transverse colon, descending colon, sigmoid colon, and rectum appeared normal. Retroflexion was performed in the rectum and no lesions were seen. The patient tolerated the procedure well. IMPRESSION: 3 mm hepatic flexure polyp s/p cold biopsy Rest of the colon appeared normal RECOMMENDATIONS: Findings of this examination were discussed with the patient as well as her family. She was advised to follow-up with the biopsy results. If the biopsy reveals adenoma she can have repeat colonoscopy in 5 years..
[2023-10-10 10:26] VITALS: BP 109/59; PULSE 67; RESP 16
== END 2023-10-10 10:27 | disposition home or self-care (01) ==
LOC: ORWHC2ENDO 08:24
PROVIDERS: ATTEND Internal Medicine Gastroenterology
DX: Z12.11 Encounter for screening for malignant neoplasm of colon (principal); D12.3 Benign neoplasm of transverse colon; Z86.010 Personal history of colon polyps; E11.69 Type 2 diabetes mellitus with other specified complication; E78.5 Hyperlipidemia, unspecified; I10 Essential (primary) hypertension; F17.200 Nicotine dependence, unspecified, uncomplicated; Z88.0 Allergy status to penicillin; Z91.040 Latex allergy status; Z79.82 Long term (current) use of aspirin; Z79.84 Long term (current) use of oral hypoglycemic drugs; Z79.899 Other long term (current) drug therapy
CPT/HCPCS: 88305; 45380; J2704